=== PATIENT | male | born 1970 | race Caucasian/White ===

== ENCOUNTER → 2023-12-09 | Outpatient (CLI) | payer BC ==
[2023-12-09 14:06] LABS: Microalb/Creat Ratio UR, Rand 6.875 mg/g (0.000-30.000); Microalbumin, Random Urine 20.9 mg/L (0.000-20.000)
== END ==
LOC: LAB SHORT 12:30 → LAB 12:30
PROVIDERS: Nurse Practitioner Family
DX: R73.9 Hyperglycemia, unspecified (principal)
CPT/HCPCS: 82043; 82570

== ENCOUNTER → 2024-12-21 | Outpatient (CLI) | payer OTHER | LOC: LAB SHORT 11:41 → LAB 11:41 | DX: E11.9 Type 2 diabetes mellitus without complications (principal) | CPT/HCPCS: 83036 ==